=== PATIENT | female | born 1935 | race Caucasian/White ===

== ENCOUNTER → 2016-09-14 | Outpatient (REF) | payer MEDICARE ==
[~2016-09-14] MED LIST: ANEX7.5T PO
[2016-09-14 13:23] LABS: BASO % 0.5 % (0.0-1.0); EOS # 0.2 K/mm3 (0.0-0.50); EOS % 4.7 % (0.0-3.0); LARGE UNSTAINED CELL # 0.1 K/mm3 (0.0-0.4); LARGE UNSTAINED CELL % 2.3 % (0.0-4.0); LYMPH # 1.8 K/mm3 (1.5-4.5); LYMPH % 35.9 % (24.0-44.0); MEAN CORPUSCULAR HEMOGLOBIN 31.2 pg (27.0-33.0); MEAN CORPUSCULAR HGB CONC 32.5 g/dl (32.0-36.5); MEAN CORPUSCULAR VOLUME 96.1 fl (80.0-96.0); MONO # 0.4 K/mm3 (0.0-0.8); MONO % 8.2 % (0.0-5.0); NEUTROPHILS # 2.5 K/mm3 (1.8-7.7); NEUTROPHILS % 48.5 % (36.0-66.0); PLATELET COUNT, AUTOMATED 235 k/mm3 (150-450); WHITE BLOOD COUNT 5.1 K/mm3 (4.0-10.0)
[2016-09-14 13:29] LABS: ALBUMIN 4.2 GM/DL (3.2-5.2); ALBUMIN/GLOBULIN RATIO 1.91 (1.00-1.93); ALKALINE PHOSPHATASE 86 U/L (45-117); ALT/SGPT 26 U/L (12-78); ANION GAP 8 MEQ/L (8-16); AST/SGOT 19 U/L (15-37); BILIRUBIN,TOTAL 0.9 MG/DL (0.2-1.0); BLOOD UREA NITROGEN 20 MG/DL (7-18); CALCIUM LEVEL 9.4 MG/DL (8.8-10.2); CARBON DIOXIDE LEVEL 29 MEQ/L (21-32); CHLORIDE LEVEL 106 MEQ/L (98-107); CHOLESTEROL LEVEL 229 MG/DL (<200); GLOMERULAR FILTRATION RATE > 60.0 (>39); GLUCOSE, FASTING 91 MG/DL (83-110); POTASSIUM SERUM 4.3 MEQ/L (3.5-5.1); SODIUM LEVEL 143 MEQ/L (136-145); TOTAL PROTEIN 6.4 GM/DL (6.4-8.2); TRIGLYCERIDES LEVEL 120 MG/DL (<150)
== END ==
LOC: M LAB REF 09:10
PROVIDERS: ATTEND Family Medicine
DX: E78.5 Hyperlipidemia, unspecified (principal); M81.0 Age-related osteoporosis without current pathological fracture

== ENCOUNTER → 2016-11-22 | Outpatient (REF) | payer MEDICARE | LOC: M LABDRWAD 09:46 | PROVIDERS: ATTEND Orthopaedic Surgery | DX: M51.36 Other intervertebral disc degeneration, lumbar region (principal) ==

== ENCOUNTER → 2017-01-14 | Outpatient (CLI) | payer MEDICARE ==
--- NOTE | 2017-01-14 10:23 | REPMRS ---
Patient History The patient states she has not had a clinical breast exam in over a year. Patient is postmenopausal, has history of other cancer at age 62, and is nulliparous. Family history of prostate cancer in father at age 50 or over, prostate cancer in paternal grandfather at age 50 or over, breast cancer in paternal cousin at age 50 or over, prostate cancer in brother at age 50 or over, and colorectal cancer in brother at age 50 or over. Digital Woman Screen Mammo: January 14, 2017 - Exam #: [id number] Bilateral CC and MLO view(s) were taken. Technologist: April Summers, Technologist Prior study comparison: January 12, 2016, digital woman screen mammo performed at [facility]. January 21, 2015, digital woman screen mammo performed at [facility]. FINDINGS: The breast tissue is heterogeneously dense. This may lower the sensitivity of mammography. There has been no change in the appearance of the mammogram from the prior studies. There is a moderate amount of residual fibroglandular tissue which is fairly symmetric. There is no interval development of dominant mass, areas of architectural distortion, or clustered microcalcification typical of malignancy. ASSESSMENT: BI-RADS/ACR category 1 mammogram. Negative. Recommendation Routine screening mammogram in 1 year (for women over age 40). This mammogram was interpreted with the aid of an FDA-approved computer-aided dectection system. Electronically Signed By: Wojciech Ortega MD 01/14/17 [id number]
== END ==
LOC: M WHC 07:53
PROVIDERS: ATTEND Family Medicine
DX: Z12.31 Encounter for screening mammogram for malignant neoplasm of breast (principal); R92.8 Other abnormal and inconclusive findings on diagnostic imaging of breast; Z78.0 Asymptomatic menopausal state; Z80.0 Family history of malignant neoplasm of digestive organs

== ENCOUNTER → 2017-02-13 | Outpatient (REF) | payer MEDICARE ==
[2017-02-13 12:45] LABS: MEAN CORPUSCULAR HEMOGLOBIN 32.3 pg (27.0-33.0); MEAN CORPUSCULAR HGB CONC 33.6 g/dl (32.0-36.5); MEAN CORPUSCULAR VOLUME 96.1 fl (80.0-96.0); RED CELL DISTRIBUTION WIDTH 12.1 % (11.5-14.5); WHITE BLOOD COUNT 4.7 K/mm3 (4.0-10.0)
[2017-02-13 13:01] LABS: ALBUMIN 4.4 GM/DL (3.2-5.2); ALBUMIN/GLOBULIN RATIO 1.83 (1.00-1.93); ALKALINE PHOSPHATASE 102 U/L (45-117); ALT/SGPT 28 U/L (12-78); ANION GAP 5 MEQ/L (8-16); AST/SGOT 24 U/L (15-37); BILIRUBIN,TOTAL 1.1 MG/DL (0.2-1.0); BLOOD UREA NITROGEN 16 MG/DL (7-18); CARBON DIOXIDE LEVEL 32 MEQ/L (21-32); CHLORIDE LEVEL 107 MEQ/L (98-107); CREATININE FOR GFR 0.79 MG/DL (0.55-1.02); GLOMERULAR FILTRATION RATE > 60.0 (>39); GLUCOSE, FASTING 95 MG/DL (83-110); POTASSIUM SERUM 4.5 MEQ/L (3.5-5.1); SODIUM LEVEL 144 MEQ/L (136-145); TOTAL PROTEIN 6.8 GM/DL (6.4-8.2)
== END ==
LOC: M LABDRWAD 12:06
PROVIDERS: ATTEND Family Medicine
DX: Z01.812 Encounter for preprocedural laboratory examination (principal); Z79.899 Other long term (current) drug therapy

== ENCOUNTER → 2017-02-25 | Outpatient (REF) | payer MEDICARE ==
[2017-02-25 21:08] LABS: MEAN CORPUSCULAR HEMOGLOBIN 31.9 pg (27.0-33.0); MEAN CORPUSCULAR HGB CONC 32.9 g/dl (32.0-36.5); MEAN CORPUSCULAR VOLUME 97.2 fl (80.0-96.0); RED CELL DISTRIBUTION WIDTH 12.8 % (11.5-14.5)
== END ==
LOC: M LABDRWAD 20:30
PROVIDERS: ATTEND Orthopaedic Surgery
DX: Z00.00 Encounter for general adult medical examination without abnormal findings (principal); R63.6 Underweight

== ENCOUNTER → 2017-07-25 | Outpatient (REF) | payer MEDICARE ==
[2017-07-25 12:11] LABS: HEMOGLOBIN 13.8 g/dl (12.0-16.0); MEAN CORPUSCULAR HEMOGLOBIN 31.8 pg (27.0-33.0); MEAN CORPUSCULAR HGB CONC 32.1 g/dl (32.0-36.5); MEAN CORPUSCULAR VOLUME 99.1 fl (80.0-96.0); PLATELET COUNT, AUTOMATED 298 10^3/uL (150-450); RED BLOOD COUNT 4.34 10^6/uL (4.00-5.40); WHITE BLOOD COUNT 5.6 10^3/uL (4.0-10.0)
[2017-07-25 12:24] LABS: CREATININE FOR GFR 0.82 MG/DL (0.55-1.30); GLOMERULAR FILTRATION RATE > 60.0 (>32)
[2017-07-25 12:24] LABS: BLOOD UREA NITROGEN 12 MG/DL (7-18)
[2017-07-25 12:26] LABS: INR 0.98; PROTHROMBIN TIME 13.1 SECONDS (12.4-14.5)
[2017-07-25 12:27] LABS: PARTIAL THROMBOPLASTIN TIME 30.9 SECONDS (26.8-37.9)
== END ==
LOC: M LABDRWAD 12:00
DX: M51.26 Other intervertebral disc displacement, lumbar region (principal); M51.36 Other intervertebral disc degeneration, lumbar region; M43.17 Spondylolisthesis, lumbosacral region; M41.9 Scoliosis, unspecified
CPT/HCPCS: 82565

== ENCOUNTER → 2017-08-09 | Outpatient (CLI) | payer MEDICARE ==
[~2017-08-09] MED LIST changes: -ANEX7.5T PO; +ISOVUE-M 300 61% 15ML VIAL (Q9967) As Ordered; +LIDOCAINE 1% MDV 20ML VIAL As Ordered
== END ==
LOC: M RADPRO 08:15
DX: M54.6 Pain in thoracic spine (principal); M48.061 Spinal stenosis, lumbar region without neurogenic claudication; M51.36 Other intervertebral disc degeneration, lumbar region; M41.86 Other forms of scoliosis, lumbar region; Z98.1 Arthrodesis status; Z88.8 Allergy status to other drugs, medicaments and biological substances; Z88.5 Allergy status to narcotic agent; Z88.1 Allergy status to other antibiotic agents; Z88.0 Allergy status to penicillin; Z79.899 Other long term (current) drug therapy
CPT/HCPCS: 62305

== ENCOUNTER → 2017-09-17 | Outpatient (REF) | payer MEDICARE ==
[2017-09-17 12:35] LABS: BASO % 0.6 % (0.0-1.0); EOS # 0.2 10^3/uL (0.0-0.50); EOS % 3.3 % (0.0-3.0); HEMATOCRIT 42.1 % (36.0-47.0); HEMOGLOBIN 13.3 g/dl (12.0-15.5); IMMATURE GRANULOCYTE % 0.1 % (0-3.0); LYMPH # 1.9 10^3/uL (1.5-4.5); MEAN CORPUSCULAR HEMOGLOBIN 31.6 pg (27.0-33.0); MEAN CORPUSCULAR HGB CONC 31.6 g/dl (32.0-36.5); MONO # 0.6 10^3/uL (0.0-0.8); MONO % 8.7 % (0.0-5.0); NEUTROPHILS % 59.3 % (36.0-66.0); PLATELET COUNT, AUTOMATED 314 10^3/uL (150-450); RED BLOOD COUNT 4.21 10^6/uL (4.00-5.40); RED CELL DISTRIBUTION WIDTH 12.5 % (11.5-14.5); WHITE BLOOD COUNT 6.7 10^3/uL (4.0-10.0)
[2017-09-17 12:49] LABS: TOTAL 25(OH) VITAMIN D 43.3 NG/ML (30.0-100.0)
[2017-09-17 13:19] LABS: ALBUMIN 4.4 GM/DL (3.2-5.2); ALBUMIN/GLOBULIN RATIO 1.52 (1.00-1.93); ALKALINE PHOSPHATASE 140 U/L (45-117); ALT/SGPT 21 U/L (12-78); ANION GAP 9 MEQ/L (8-16); AST/SGOT 23 U/L (7-37); BILIRUBIN,TOTAL 0.8 MG/DL (0.2-1.0); BLOOD UREA NITROGEN 17 MG/DL (7-18); CALCIUM LEVEL 9.3 MG/DL (8.8-10.2); CARBON DIOXIDE LEVEL 28 MEQ/L (21-32); CHLORIDE LEVEL 107 MEQ/L (98-107); CREATININE FOR GFR 0.73 MG/DL (0.55-1.30); GLOMERULAR FILTRATION RATE > 60.0 (>32); GLUCOSE, FASTING 94 MG/DL (70-100); POTASSIUM SERUM 3.9 MEQ/L (3.5-5.1); SODIUM LEVEL 144 MEQ/L (136-145); TOTAL PROTEIN 7.3 GM/DL (6.4-8.2)
== END ==
LOC: M LABDRWAD 12:19
DX: Z01.812 Encounter for preprocedural laboratory examination (principal); M81.0 Age-related osteoporosis without current pathological fracture
CPT/HCPCS: 80053

== ENCOUNTER → 2017-10-08 | Outpatient (REF) | payer MEDICARE ==
[2017-10-08 10:36] LABS: ANION GAP 8 MEQ/L (8-16); BLOOD UREA NITROGEN 11 MG/DL (7-18); CALCIUM LEVEL 8.1 MG/DL (8.8-10.2); CARBON DIOXIDE LEVEL 29 MEQ/L (21-32); CHLORIDE LEVEL 107 MEQ/L (98-107); CREATININE FOR GFR 0.46 MG/DL (0.55-1.30); GLOMERULAR FILTRATION RATE > 60.0 (>32); GLUCOSE, FASTING 99 MG/DL (70-100); MAGNESIUM LEVEL 2.2 MG/DL (1.8-2.4); POTASSIUM SERUM 3.5 MEQ/L (3.5-5.1); SODIUM LEVEL 144 MEQ/L (136-145)
== END ==
LOC: M LABDRWAD 09:58
DX: Z00.00 Encounter for general adult medical examination without abnormal findings (principal)
CPT/HCPCS: 83735

== ENCOUNTER → 2018-01-15 | Outpatient (CLI) | payer MEDICARE | LOC: M WHC 13:58 | DX: Z12.31 Encounter for screening mammogram for malignant neoplasm of breast (principal); N60.31 Fibrosclerosis of right breast; N60.32 Fibrosclerosis of left breast | CPT/HCPCS: 77067 ==

== ENCOUNTER → 2018-02-14 | Outpatient (CLI) | payer MEDICARE | LOC: M ADAMS 11:16 | DX: M25.562 Pain in left knee (principal) | CPT/HCPCS: 73564 ==

== ENCOUNTER → 2018-04-02 | Outpatient (CLI) | payer MEDICARE ==
[2018-04-02 12:46] LABS: BASO % 0.5 % (0.0-1.0); EOS # 0.2 10^3/uL (0.0-0.50); EOS % 3.1 % (0.0-3.0); HEMATOCRIT 38.9 % (36.0-47.0); HEMOGLOBIN 12.5 g/dl (12.0-15.5); IMMATURE GRANULOCYTE % 0.3 % (0-3.0); LYMPH # 1.8 10^3/uL (1.5-4.5); LYMPH % 23.3 % (24.0-44.0); MEAN CORPUSCULAR HEMOGLOBIN 30.3 pg (27.0-33.0); MEAN CORPUSCULAR HGB CONC 32.1 g/dl (32.0-36.5); MEAN CORPUSCULAR VOLUME 94.2 fl (80.0-96.0); MONO # 0.6 10^3/uL (0.0-0.8); MONO % 8.3 % (0.0-5.0); NEUTROPHILS # 4.9 10^3/uL (1.8-7.7); NEUTROPHILS % 64.5 % (36.0-66.0); PLATELET COUNT, AUTOMATED 341 10^3/uL (150-450); RED BLOOD COUNT 4.13 10^6/uL (4.00-5.40); RED CELL DISTRIBUTION WIDTH 14.4 % (11.5-14.5); WHITE BLOOD COUNT 7.6 10^3/uL (4.0-10.0)
[2018-04-02 13:24] LABS: ALBUMIN 4.2 GM/DL (3.2-5.2); ALBUMIN/GLOBULIN RATIO 1.56 (1.00-1.93); ALKALINE PHOSPHATASE 173 U/L (45-117); ALT/SGPT 28 U/L (12-78); ANION GAP 9 MEQ/L (8-16); AST/SGOT 25 U/L (7-37); BILIRUBIN,TOTAL 0.6 MG/DL (0.2-1.0); BLOOD UREA NITROGEN 16 MG/DL (7-18); CARBON DIOXIDE LEVEL 28 MEQ/L (21-32); CHLORIDE LEVEL 104 MEQ/L (98-107); CREATININE FOR GFR 0.76 MG/DL (0.55-1.30); GLOMERULAR FILTRATION RATE > 60.0 (>32); GLUCOSE, FASTING 112 MG/DL (70-100); SODIUM LEVEL 141 MEQ/L (136-145); TOTAL PROTEIN 6.9 GM/DL (6.4-8.2)
== END ==
LOC: M ADAMS 11:11
DX: Z01.812 Encounter for preprocedural laboratory examination (principal)
CPT/HCPCS: 80053

== ENCOUNTER 2018-05-06 07:18 | Outpatient (CLI) | payer MEDICARE ==
[2018-05-06] MEDS: ZOLEDRONIC ACID 5 MG in APPROPRIATE DILUENT 1 EA IV (07:34)
== END 2018-05-06 08:35 | disposition home or self-care (01) ==
LOC: M INFU 07:18
DX: M81.0 Age-related osteoporosis without current pathological fracture (principal); Z88.0 Allergy status to penicillin; Z88.5 Allergy status to narcotic agent
CPT/HCPCS: J3489

== ENCOUNTER → 2018-09-15 | Outpatient (REF) | payer MEDICARE ==
[~2018-09-15] MED LIST changes: +ANEX7.5T PO; -ISOVUE-M 300 61% 15ML VIAL (Q9967) As Ordered; -LIDOCAINE 1% MDV 20ML VIAL As Ordered
[2018-09-15 13:41] LABS: BASO % 0.8 % (0.0-1.0); EOS # 0.4 10^3/uL (0.0-0.50); EOS % 7.8 % (0.0-3.0); HEMATOCRIT 42.9 % (36.0-47.0); HEMOGLOBIN 13.5 g/dl (12.0-15.5); LYMPH # 1.4 10^3/uL (1.5-4.5); LYMPH % 26.3 % (24.0-44.0); MEAN CORPUSCULAR HEMOGLOBIN 30.3 pg (27.0-33.0); MEAN CORPUSCULAR HGB CONC 31.5 g/dl (32.0-36.5); MEAN CORPUSCULAR VOLUME 96.2 fl (80.0-96.0); MONO # 0.5 10^3/uL (0.0-0.8); MONO % 9.5 % (0.0-5.0); NEUTROPHILS # 2.9 10^3/uL (1.8-7.7); NEUTROPHILS % 55.4 % (36.0-66.0); PLATELET COUNT, AUTOMATED 313 10^3/uL (150-450); RED BLOOD COUNT 4.46 10^6/uL (4.00-5.40); WHITE BLOOD COUNT 5.2 10^3/uL (4.0-10.0)
[2018-09-15 13:48] LABS: ALBUMIN 4.3 GM/DL (3.2-5.2); ALT/SGPT 24 U/L (12-78); BILIRUBIN,TOTAL 0.9 MG/DL (0.2-1.0); BLOOD UREA NITROGEN 14 MG/DL (7-18); CALCIUM LEVEL 9.7 MG/DL (8.8-10.2); CARBON DIOXIDE LEVEL 32 MEQ/L (21-32); CHLORIDE LEVEL 104 MEQ/L (98-107); CHOLESTEROL LEVEL 262 MG/DL (<200); CHOLESTEROL RISK RATIO 3.447 (<5); GLOMERULAR FILTRATION RATE > 60.0 (>32); GLUCOSE, FASTING 84 MG/DL (70-100); HDL CHOLESTEROL 76 MG/DL (>40); LDL CHOLESTEROL 153 MG/DL (<100); NON-HDL-C 186 MG/DL; POTASSIUM SERUM 4.3 MEQ/L (3.5-5.1); SODIUM LEVEL 140 MEQ/L (136-145); TOTAL PROTEIN 6.7 GM/DL (6.4-8.2); TRIGLYCERIDES LEVEL 165 MG/DL (<150)
[2018-09-15 13:52] LABS: TOTAL 25(OH) VITAMIN D 43.5 NG/ML (30.0-100.0)
== END ==
LOC: M LABDRWAD 12:32
PROVIDERS: ATTEND Family Medicine
DX: M81.0 Age-related osteoporosis without current pathological fracture (principal); E78.5 Hyperlipidemia, unspecified

== ENCOUNTER → 2018-11-18 | Outpatient (REF) | payer MEDICARE ==
[2018-11-18 13:17] LABS: ALBUMIN 4.3 GM/DL (3.2-5.2); ALT/SGPT 25 U/L (12-78); BILIRUBIN,DIRECT 0.2 MG/DL (0.0-0.2); BILIRUBIN,TOTAL 0.9 MG/DL (0.2-1.0); BLOOD UREA NITROGEN 19 MG/DL (7-18); CARBON DIOXIDE LEVEL 28 MEQ/L (21-32); CHLORIDE LEVEL 106 MEQ/L (98-107); CREATININE FOR GFR 0.73 MG/DL (0.55-1.30); GLOMERULAR FILTRATION RATE > 60.0 (>32); GLUCOSE, FASTING 93 MG/DL (70-100); PHOSPHORUS LEVEL 3.9 MG/DL (2.5-4.9); POTASSIUM SERUM 5.1 MEQ/L (3.5-5.1); SODIUM LEVEL 141 MEQ/L (136-145); TOTAL PROTEIN 7.3 GM/DL (6.4-8.2)
== END ==
LOC: M LABDRWAD 12:17
DX: M54.16 Radiculopathy, lumbar region (principal)

== ENCOUNTER → 2018-12-17 | Outpatient (REF) | payer MEDICARE ==
[2018-12-17 14:52] LABS: ALBUMIN 4.5 GM/DL (3.2-5.2); ALT/SGPT 30 U/L (12-78); BILIRUBIN,DIRECT 0.2 MG/DL (0.0-0.2); BLOOD UREA NITROGEN 13 MG/DL (7-18); CALCIUM LEVEL 9.4 MG/DL (8.8-10.2); CARBON DIOXIDE LEVEL 30 MEQ/L (21-32); CHLORIDE LEVEL 104 MEQ/L (98-107); CREATININE FOR GFR 0.76 MG/DL (0.55-1.30); GLOMERULAR FILTRATION RATE > 60.0 (>32); GLUCOSE, FASTING 106 MG/DL (70-100); PHOSPHORUS LEVEL 3.7 MG/DL (2.5-4.9); POTASSIUM SERUM 4.6 MEQ/L (3.5-5.1); SODIUM LEVEL 140 MEQ/L (136-145); TOTAL PROTEIN 7.5 GM/DL (6.4-8.2)
== END ==
LOC: M LABDRWAD 13:24
PROVIDERS: ATTEND Nurse Practitioner Family
DX: M54.5 Low back pain (principal); M54.16 Radiculopathy, lumbar region

== ENCOUNTER → 2019-01-26 | Outpatient (CLI) | payer MEDICARE ==
--- NOTE | 2019-01-26 09:21 | REPMRS ---
Patient History The patient states she has not had a clinical breast exam in over a year. Patient is postmenopausal, has history of other cancer at age 62, and is nulliparous. Family history of breast cancer at age 50 or over in paternal cousin, prostate cancer at age 50 or over in paternal grandfather, prostate cancer at age 50 or over in father, colorectal cancer at age 50 or over in brother, prostate cancer at age 50 or over in brother. 3D TOMOSYNTHESIS WAS PERFORMED. The [facility] lifetime risk for breast cancer is 2.1%. Digital Woman Screen Mammo: January 26, 2019 - Exam #: [id number] Bilateral CC and MLO view(s) were taken. Technologist: Eunice Tyler Technologist Prior study comparison: January 15, 2018, bilateral digital woman screen mammo performed at [facility]. January 14, 2017, digital woman screen mammo performed at [facility]. FINDINGS: The breast tissue is heterogeneously dense. This may lower the sensitivity of mammography. There has been no change in the appearance of the mammogram from the prior studies. There is a moderate amount of residual fibroglandular tissue which is fairly symmetric. There is no interval development of dominant mass, areas of architectural distortion, or clustered microcalcification typical of malignancy. Assessment: BI-RADS/ACR category 1 mammogram. Negative Mammogram. Recommendation Routine screening mammogram in 1 year (for women over age 40). This mammogram was interpreted with the aid of an FDA-approved computer-aided dectection system. Electronically Signed By: Wojciech Ortega MD 01/26/19 [id number]
== END ==
LOC: M WHC 07:51
PROVIDERS: ATTEND Family Medicine
DX: Z12.31 Encounter for screening mammogram for malignant neoplasm of breast (principal); Z78.0 Asymptomatic menopausal state; Z85.9 Personal history of malignant neoplasm, unspecified; Z80.3 Family history of malignant neoplasm of breast; Z80.0 Family history of malignant neoplasm of digestive organs

== ENCOUNTER → 2019-02-06 | Outpatient (REF) | payer MEDICARE | LOC: M LABDRWAD 12:09 | PROVIDERS: ATTEND Ophthalmology | DX: H34.8310 Tributary (branch) retinal vein occlusion, right eye, with macular edema (principal) ==

== ENCOUNTER → 2019-02-07 | Outpatient (CLI) | payer MEDICARE ==
[2019-02-07 10:27] LABS: CHOLESTEROL LEVEL 256 MG/DL (<200); CHOLESTEROL RISK RATIO 3.413 (<5); GLUCOSE, FASTING 95 MG/DL (70-100); HDL CHOLESTEROL 75 MG/DL (>40); HEMOGLOBIN A1c 5.5 %; LDL CHOLESTEROL 151 MG/DL (<100); NON-HDL-C 181 MG/DL; TRIGLYCERIDES LEVEL 151 MG/DL (<150)
[2019-02-07 10:42] LABS: INR 0.95; PARTIAL THROMBOPLASTIN TIME 31.7 SECONDS (25.0-38.4); PROTHROMBIN TIME 12.4 SECONDS (11.8-14.0)
[2019-02-10 00:06] LABS: ANTINUCLEAR ANTIBODIES DIRECT Negative (Negative)
[2019-02-12 09:56] LABS: ALBUMIN % 64.5 % (55.8-66.1); ALPHA-1-GLOBULINS 0.28 GM/DL (0.17-0.41); ALPHA-2-GLOBULINS 0.74 GM/DL (0.42-0.99); ALPHA-2-GLOBULINS % 10.6 % (7.1-11.8); BETA-1-GLOBULINS 0.46 GM/DL (0.28-0.60); BETA-1-GLOBULINS % 6.5 % (4.7-7.2); BETA-2-GLOBULINS 0.35 GM/DL (0.19-0.55); GAMMA GLOBULIN % 9.4 % (11.1-18.8); GAMMA GLOBULINS 0.66 GM/DL (0.65-1.58)
[2019-02-12 09:57] LABS: ALBUMIN 4.52 GM/DL (3.29-5.55)
== END ==
LOC: M ADAMS 08:40
PROVIDERS: ATTEND Ophthalmology
DX: H34.8310 Tributary (branch) retinal vein occlusion, right eye, with macular edema (principal)

== ENCOUNTER → 2019-02-11 | Outpatient (REF) | payer MEDICARE ==
[2019-02-11 12:44] LABS: ALBUMIN 3.9 GM/DL (3.2-5.2); ALT/SGPT 25 U/L (12-78); BILIRUBIN,TOTAL 0.7 MG/DL (0.2-1.0); BLOOD UREA NITROGEN 23 MG/DL (7-18); CALCIUM LEVEL 9.6 MG/DL (8.8-10.2); CARBON DIOXIDE LEVEL 27 MEQ/L (21-32); CHLORIDE LEVEL 105 MEQ/L (98-107); CREATININE FOR GFR 0.83 MG/DL (0.55-1.30); GLOMERULAR FILTRATION RATE > 60.0 (>32); GLUCOSE, FASTING 101 MG/DL (70-100); POTASSIUM SERUM 4.3 MEQ/L (3.5-5.1); SODIUM LEVEL 140 MEQ/L (136-145); TOTAL PROTEIN 6.4 GM/DL (6.4-8.2)
== END ==
LOC: M LABDRWAD 12:22
PROVIDERS: ATTEND Family Medicine
DX: H34.231 Retinal artery branch occlusion, right eye (principal)

== ENCOUNTER → 2019-02-19 | Outpatient (CLI) | payer MEDICARE ==
[~2019-02-19] MED LIST changes: +PROHANCE 279.3MG/ML 15ML VIAL (A9576) As Ordered ONE; +PROHANCE 279.3MG/ML 5ML VIAL (A9576) As Ordered ONE
--- NOTE | 2019-02-19 14:03 | REPVR ---
PROCEDURE INFORMATION: Exam: MR Head Without Contrast Exam date and time: 02/19/2019 11:55 AM Clinical history: 83 years old, female; Other: Retinal artery branch occlusion, right eye TECHNIQUE: Imaging protocol: MR of the head without contrast. COMPARISON: No relevant prior studies available. FINDINGS: Brain: The diffusion weighted images demonstrate no evidence for acute infarct. The cerebellar tonsils are normal in position. There are moderate areas of increased signal in the periventricular white matter bilaterally. Several small foci of increased signal are also present in the deep subcortical white matter. Findings likely reflect chronic microvascular ischemic disease in a patient of this age. No intracranial hemorrhage or extraaxial collection is identified. There is no significant intracranial mass effect, and no mass is identified. Ventricles: The ventricles and sulci are mildly prominent, in concordance with mild global atrophy. Bones/joints: Unremarkable. Soft tissues: Unremarkable. Sinuses: Normal as visualized. No acute sinusitis. Mastoid air cells: Normal as visualized. No mastoid effusion. Orbits: Unremarkable. IMPRESSION: 1. No evidence for acute infarct, hemorrhage or mass. 2. Mild atrophy with chronic white matter disease. Electronically signed by: Steve Kathleen On 02/19/2019 14:03:18 PM
--- NOTE | 2019-02-19 14:05 | REPVR ---
PROCEDURE INFORMATION: Exam: MR Angiogram Head Without Contrast, Arteries Exam date and time: 02/19/2019 11:58 AM Clinical history: 83 years old, female; Other: Retinal artery branch occlusion, right eye TECHNIQUE: Imaging protocol: MR angiogram head without contrast. Exam focused on the arteries. COMPARISON: No relevant prior studies available. FINDINGS: Right internal carotid artery: Unremarkable. Intracranial segment is patent with no significant stenosis. No aneurysm. Right anterior cerebral artery: Unremarkable. No occlusion or significant stenosis. No aneurysm. Right middle cerebral artery: Unremarkable. No occlusion or significant stenosis. No aneurysm. Right posterior cerebral artery: Unremarkable. No occlusion or significant stenosis. No aneurysm. Right vertebral artery: Unremarkable. No occlusion or significant stenosis. No aneurysm. Left internal carotid artery: There is mild short segmental narrowing at the junction of the upper cervical and petrous portions of the internal carotid artery. The artery is otherwise patent. Left anterior cerebral artery: Unremarkable. No occlusion or significant stenosis. No aneurysm. Left middle cerebral artery: Unremarkable. No occlusion or significant stenosis. No aneurysm. Left posterior cerebral artery: Unremarkable. No occlusion or significant stenosis. No aneurysm. Left vertebral artery: Unremarkable. No occlusion or significant stenosis. No aneurysm. Basilar artery: Unremarkable. No occlusion or significant stenosis. No aneurysm. IMPRESSION: Mild short segmental narrowing of the left internal carotid artery as above. Otherwise, no significant stenosis, occlusion or aneurysm. Electronically signed by: Steve Kathleen On 02/19/2019 14:05:48 PM
--- NOTE | 2019-02-19 14:08 | REPVR ---
PROCEDURE INFORMATION: Exam: MR Angiography Neck Without and With Contrast Exam date and time: 02/19/2019 11:58 AM Clinical history: 83 years old, female; Other: Retinal artery branch occlusion, right eye TECHNIQUE: Imaging protocol: Magnetic resonance angiography of the neck without and with intravenous contrast. Contrast material: PROHANCE; Contrast volume: 25 ml; Contrast route: IV; COMPARISON: No relevant prior studies available. FINDINGS: Right common carotid artery: Unremarkable. No stenosis. No dissection or occlusion. Right internal carotid artery: Unremarkable extracranial segment. No stenosis. No dissection or occlusion. Right external carotid artery: Unremarkable. No stenosis. No dissection or occlusion of the origin. Right vertebral artery: Torturous. No stenosis. No dissection or occlusion. Left common carotid artery: Unremarkable. No stenosis. No dissection or occlusion. Left internal carotid artery: There is mild short segmental narrowing of the left internal carotid artery at the junction of the upper cervical and petrous portions. The artery is otherwise patent. Left external carotid artery: Unremarkable. No stenosis. No dissection or occlusion of the origin. Left vertebral artery: Tortuous. No stenosis. No dissection or occlusion. IMPRESSION: 1. No hemodynamically significant stenosis at the carotid bifurcations. 2. Mild short segmental narrowing of the left internal carotid artery at the junction of the upper cervical and petrous portions. 3. Vertebral arteries tortuous but patent. COMMENT: Reference per NASCET criteria for degree of stenosis: Mild: less than 50% stenosis. Moderate: 50-69% stenosis. Severe: 70-94% stenosis. Near occlusion: 95-99% stenosis. Electronically signed by: Steve Kathleen On 02/19/2019 14:08:02 PM
== END ==
LOC: M RAD 09:58
PROVIDERS: ATTEND Family Medicine
DX: H34.231 Retinal artery branch occlusion, right eye (principal); I65.21 Occlusion and stenosis of right carotid artery; G31.1 Senile degeneration of brain, not elsewhere classified
CPT/HCPCS: 70544; 70549; 70551; A9576

== ENCOUNTER → 2019-08-18 | Outpatient (REF) | payer MEDICARE ==
[~2019-08-18] MED LIST changes: -PROHANCE 279.3MG/ML 15ML VIAL (A9576) As Ordered ONE; -PROHANCE 279.3MG/ML 5ML VIAL (A9576) As Ordered ONE
[2019-08-18 12:47] LABS: HEMATOCRIT 41.7 % (36.0-47.0); HEMOGLOBIN 13.1 g/dl (12.0-15.5); MEAN CORPUSCULAR HGB CONC 31.4 g/dl (32.0-36.5); MEAN CORPUSCULAR VOLUME 95.6 fl (80.0-96.0); PLATELET COUNT, AUTOMATED 328 10^3/uL (150-450); RED BLOOD COUNT 4.36 10^6/uL (4.00-5.40); WHITE BLOOD COUNT 16.3 10^3/uL (4.0-10.0)
[2019-08-18 12:51] LABS: ALBUMIN 4.7 GM/DL (3.2-5.2); ALT/SGPT 28 U/L (12-78); BILIRUBIN,TOTAL 1.1 MG/DL (0.2-1.0); BLOOD UREA NITROGEN 22 MG/DL (7-18); CALCIUM LEVEL 9.8 MG/DL (8.8-10.2); CARBON DIOXIDE LEVEL 27 MEQ/L (21-32); CHLORIDE LEVEL 102 MEQ/L (98-107); CHOLESTEROL LEVEL 166 MG/DL (<200); CHOLESTEROL RISK RATIO 1.952 (<5); CREATININE FOR GFR 0.92 MG/DL (0.55-1.30); GLOMERULAR FILTRATION RATE > 60.0 (>32); GLUCOSE, FASTING 114 MG/DL (70-100); HDL CHOLESTEROL 85 MG/DL (>40); LDL CHOLESTEROL 65 MG/DL (<100); NON-HDL-C 81 MG/DL; POTASSIUM SERUM 4.4 MEQ/L (3.5-5.1); SODIUM LEVEL 135 MEQ/L (136-145); TOTAL PROTEIN 7.9 GM/DL (6.4-8.2); TRIGLYCERIDES LEVEL 81 MG/DL (<150)
[2019-08-18 12:58] LABS: TOTAL 25(OH) VITAMIN D 43.8 NG/ML (30.0-100.0)
== END ==
LOC: M LABDRWAD 12:21
PROVIDERS: ATTEND Family Medicine
DX: M81.0 Age-related osteoporosis without current pathological fracture (principal); E78.5 Hyperlipidemia, unspecified

== ENCOUNTER → 2019-08-28 | Outpatient (REF) | payer MEDICARE ==
[2019-08-28 13:19] LABS: HEMATOCRIT 37.5 % (36.0-47.0); HEMOGLOBIN 11.7 g/dl (12.0-15.5); MEAN CORPUSCULAR HEMOGLOBIN 30.5 pg (27.0-33.0); MEAN CORPUSCULAR HGB CONC 31.2 g/dl (32.0-36.5); MEAN CORPUSCULAR VOLUME 97.7 fl (80.0-96.0); PLATELET COUNT, AUTOMATED 295 10^3/uL (150-450); RED BLOOD COUNT 3.84 10^6/uL (4.00-5.40); WHITE BLOOD COUNT 6.9 10^3/uL (4.0-10.0)
[2019-08-28 14:03] LABS: ATYPICAL LYMPH 12 % (0-5); BASOPHILS 1 % (0-1); EOSINOPHILS 4 % (0-3); LYMPHOCYTES 13 % (16-44); MONOCYTES 5 % (0-5); NEUTROPHILS 64 % (28-66)
[2019-08-28 14:04] LABS: OVALOCYTES 2+; PLATELET ESTIMATE NORMAL (NORMAL)
== END ==
LOC: M LABDRWAD 12:32
PROVIDERS: ATTEND Family Medicine
DX: D72.829 Elevated white blood cell count, unspecified (principal)

== ENCOUNTER → 2019-10-09 | Outpatient (CLI) | payer MEDICARE ==
--- NOTE | 2019-10-15 09:17 | DEXA ---
AP SPINE L1 - L4 LT FEMUR TOTAL 0.746 -2.1 0.0 LT NECK 0.737 -2.2 0.1 RT FEMUR TOTAL 0.765 -1.9 0.2 RT NECK 0.762 -2.0 0.3 TOTAL BODY TOTAL OTHER COMMENTS: There is low bone density of the hips. The decreased density of the left hip does not represent a significant change. The decreased density of the right hip does not represent significant change. The density of the left hip has increased 1.4% since initial exam on 11/08/1998. The density of the left hip has decreased 0.3% since the most recent exam on 01/12/2016. The density of the right hip has increased 1.6% since initial exam on 11/08/1998. The density of the right hip has decreased 0.5% since the most recent exam on 01/12/2016. FOLLOW-UP: Recommendation for the next bone density exam: 2 years. REYNALDO
== END ==
LOC: M WHC 08:45
PROVIDERS: ATTEND Family Medicine
DX: M81.0 Age-related osteoporosis without current pathological fracture (principal)

== ENCOUNTER 2019-11-23 13:44 | Outpatient (CLI) | payer MEDICARE ==
[~2019-11-23] VITALS: Ht 162.6 cm; Wt 60.0 kg
[2019-11-23] MEDS ORDERED: ZOLEDRONIC ACID 5 MG in IV 1 EA IV ONE (14:00)
[2019-11-23 14:01] VITALS: BP 155/67
[2019-11-23 14:50] VITALS: BP 145/65
== END 2019-11-23 14:55 | disposition home or self-care (01) ==
LOC: M INFU 13:44
PROVIDERS: ATTEND Family Medicine
DX: M81.0 Age-related osteoporosis without current pathological fracture (principal); Z88.0 Allergy status to penicillin; Z88.5 Allergy status to narcotic agent
CPT/HCPCS: 96365; J3489

== ENCOUNTER → 2020-02-25 | Outpatient (CLI) | payer MEDICARE ==
--- NOTE | 2020-02-25 12:03 | REPMRS ---
Patient History The patient states she has not had a clinical breast exam in over a year. Family history of breast cancer at age 50 or over in paternal cousin, prostate cancer at age 50 or over in paternal grandfather, prostate cancer at age 50 or over in father, colorectal cancer at age 50 or over in brother, prostate cancer at age 50 or over in brother. 3D TOMOSYNTHESIS WAS PERFORMED. The [facility] lifetime risk for breast cancer is 1.6%. [facility] Digital Woman Screen Mammo: February 25, 2020 - Exam #: [id number] Bilateral CC and MLO view(s) were taken. Technologist: Genesis Kraft, Technologist Prior study comparison: January 26, 2019, bilateral digital woman screen mammo performed at [facility]. January 15, 2018, bilateral digital woman screen mammo performed at [facility]. January 14, 2017, digital woman screen mammo performed at [facility]. FINDINGS: The breast tissue is heterogeneously dense. This may lower the sensitivity of mammography. There has been no change in the appearance of the mammogram from the prior studies. There is a moderate amount of residual fibroglandular tissue which is fairly symmetric. There is no interval development of dominant mass, areas of architectural distortion, or clustered microcalcification typical of malignancy. Assessment: BI-RADS/ACR category 1 mammogram. Negative Mammogram. Recommendation Routine screening mammogram of both breasts in 1 year (for women over age 40). This patient's Lifetime Breast Cancer RIsk is estimated at 1.6 %. This mammogram was interpreted with the aid of an FDA-approved computer-aided dectection system. Electronically Signed By: Mike Bernal MD 02/25/20 [id number]
== END ==
LOC: M WHC 07:40
PROVIDERS: ATTEND Family Medicine
DX: Z12.31 Encounter for screening mammogram for malignant neoplasm of breast (principal); Z80.3 Family history of malignant neoplasm of breast; Z80.42 Family history of malignant neoplasm of prostate; Z80.0 Family history of malignant neoplasm of digestive organs

== ENCOUNTER → 2020-07-04 | Outpatient (CLI) | payer MEDICARE ==
--- NOTE | 2020-07-04 14:23 | REP ---
INDICATION: LOW BACK PAIN. COMPARISON: None. TECHNIQUE: Three AP and lateral views of thoracic spine performed. FINDINGS: There are 2 Bertrand rods extending from the lower cervical spine to the T9 vertebral body level. Two other Bertrand rods extend from T8 to L1. There are Bertrand rods in the lumbar spine as well. Multiple screws fix these rods posteriorly. Moderate compression deformities noted of T10 as well as T6. There is mild accentuation of thoracic kyphosis. There is mild diffuse spurring. There is mild curvature convex to the right. IMPRESSION: Bertrand rods throughout the thoracic region as discussed above. Moderate compression deformity of T6 and T10 of indeterminate age. <Electronically signed by Wojciech Ortega > 07/04/20 [id number]
--- NOTE | 2020-07-04 14:30 | REP ---
INDICATION: LOW BACK PAIN. COMPARISON: CT 08/09/2017.. TECHNIQUE: Six views lumbosacral spine performed. FINDINGS: Two Bertrand rods are seen along the entire lumbar spine on each side. Twelve there are Bertrand rods bridge the lumbosacral junction. Multiple posterior screws are seen. No compression fracture is seen. There is slight retrolisthesis of L2 on L3. There is slight anterolisthesis of L4 on L5 and L5 on S1. There is mild diffuse spurring. There is moderate disc space narrowing and subchondral sclerosis at L1-2 with mild narrowing at L2-3. There is mild narrowing at L4-5. There is moderate narrowing at L5-S1. There is bony fusion along both sides of the lower lumbar spine. Metallic clips are seen in the right upper quadrant. There is a coiled wire in the left pelvis. IMPRESSION: No acute compression fracture. Arthritic and postsurgical changes as above. <Electronically signed by Wojciech Ortega > 07/04/20 0012
== END ==
LOC: M ADAMS 13:02
PROVIDERS: ATTEND Nurse Practitioner Family
DX: M54.5 Low back pain (principal); Z96.89 Presence of other specified functional implants; M47.816 Spondylosis without myelopathy or radiculopathy, lumbar region

== ENCOUNTER → 2020-09-13 | Outpatient (REF) | payer MEDICARE ==
[2020-09-13 12:35] LABS: HEMATOCRIT 41.1 % (36.0-47.0); HEMOGLOBIN 12.5 g/dl (12.0-15.5); MEAN CORPUSCULAR HEMOGLOBIN 27.7 pg (27.0-33.0); MEAN CORPUSCULAR HGB CONC 30.4 g/dl (32.0-36.5); MEAN CORPUSCULAR VOLUME 90.9 fl (80.0-96.0); PLATELET COUNT, AUTOMATED 289 10^3/uL (150-450); RED BLOOD COUNT 4.52 10^6/uL (4.00-5.40); WHITE BLOOD COUNT 6.6 10^3/uL (4.0-10.0)
[2020-09-13 13:56] LABS: ALBUMIN 4.7 GM/DL (3.2-5.2); ALT/SGPT 26 U/L (12-78); BILIRUBIN,TOTAL 1.2 MG/DL (0.2-1.0); BLOOD UREA NITROGEN 17 MG/DL (7-18); CALCIUM LEVEL 10.1 MG/DL (8.8-10.2); CARBON DIOXIDE LEVEL 27 MEQ/L (21-32); CHLORIDE LEVEL 106 MEQ/L (98-107); CHOLESTEROL LEVEL 152 MG/DL (<200); CHOLESTEROL RISK RATIO 1.747 (<5); CREATININE FOR GFR 0.77 MG/DL (0.55-1.30); GLOMERULAR FILTRATION RATE > 60.0 (>32); GLUCOSE, FASTING 92 MG/DL (70-100); HDL CHOLESTEROL 87 MG/DL (>40); LDL CHOLESTEROL 53 MG/DL (<100); NON-HDL-C 65 MG/DL; POTASSIUM SERUM 4.5 MEQ/L (3.5-5.1); SODIUM LEVEL 141 MEQ/L (136-145); TOTAL 25(OH) VITAMIN D 46.4 NG/ML (30.0-100.0); TOTAL PROTEIN 7.1 GM/DL (6.4-8.2); TRIGLYCERIDES LEVEL 59 MG/DL (<150)
== END ==
LOC: M LABDRWAD 12:19
PROVIDERS: ATTEND Family Medicine
DX: M81.0 Age-related osteoporosis without current pathological fracture (principal); E78.5 Hyperlipidemia, unspecified

== ENCOUNTER → 2020-10-27 | Outpatient (CLI) | payer MEDICARE ==
[2020-10-27 11:28] LABS: BASO % 0.5 % (0.0-1.0); EOS # 0.6 10^3/uL (0.0-0.5); EOS % 10.2 % (0.0-3.0); HEMATOCRIT 41.5 % (36.0-47.0); HEMOGLOBIN 12.5 g/dl (12.0-15.5); LYMPH # 0.9 10^3/uL (1.5-5.0); LYMPH % 16.7 % (24.0-44.0); MEAN CORPUSCULAR HEMOGLOBIN 27.9 pg (27.0-33.0); MEAN CORPUSCULAR HGB CONC 30.1 g/dl (32.0-36.5); MEAN CORPUSCULAR VOLUME 92.6 fl (80.0-96.0); MONO # 0.7 10^3/uL (0.0-0.8); MONO % 12.2 % (2.0-8.0); NEUTROPHILS # 3.3 10^3/uL (1.5-8.5); PLATELET COUNT, AUTOMATED 250 10^3/uL (150-450); RED BLOOD COUNT 4.48 10^6/uL (4.00-5.40); WHITE BLOOD COUNT 5.6 10^3/uL (4.0-10.0)
[2020-10-27 11:40] LABS: INR 0.93; PROTHROMBIN TIME 12.7 SECONDS (12.5-14.3)
[2020-10-27 11:41] LABS: PARTIAL THROMBOPLASTIN TIME 29.7 SECONDS (24.2-38.5)
[2020-10-27 11:53] LABS: ERYTHROCYTE SEDIMENTATION RATE 10 mm/hr (0-30)
[2020-10-27 12:13] LABS: ALBUMIN 4.5 GM/DL (3.2-5.2); ALT/SGPT 30 U/L (12-78); BILIRUBIN,TOTAL 0.7 MG/DL (0.2-1.0); BLOOD UREA NITROGEN 14 MG/DL (7-18); C REACTIVE PROTEIN QUANTITATIV 0.83 MG/DL (0.00-0.30); CALCIUM LEVEL 9.7 MG/DL (8.8-10.2); CARBON DIOXIDE LEVEL 28 MEQ/L (21-32); CHLORIDE LEVEL 108 MEQ/L (98-107); CREATININE FOR GFR 0.69 MG/DL (0.55-1.30); GLOMERULAR FILTRATION RATE > 60.0 (>32); GLUCOSE, FASTING 95 MG/DL (70-100); POTASSIUM SERUM 4.2 MEQ/L (3.5-5.1); SODIUM LEVEL 142 MEQ/L (136-145)
== END ==
LOC: M WUC 09:59
PROVIDERS: ATTEND Physician Assistant
DX: R21 Rash and other nonspecific skin eruption (principal)

== ENCOUNTER → 2020-11-11 | Outpatient (REF) | payer MEDICARE | LOC: M LAB REF 16:19 | PROVIDERS: ATTEND Ophthalmology | DX: D23.111 Other benign neoplasm of skin of right upper eyelid, including canthus (principal) ==

== ENCOUNTER 2020-11-30 14:53 | Outpatient (CLI) | payer MEDICARE ==
[~2020-11-30] VITALS: Ht 162.6 cm; Wt 56.8 kg
[2020-11-30 15:00] VITALS: BP 164/78
[2020-11-30] MEDS ORDERED: ZOLEDRONIC ACID 5 MG in IV 1 EA IV ONE (15:00)
[2020-11-30 15:30] VITALS: BP 139/79
== END 2020-11-30 15:45 | disposition home or self-care (01) ==
LOC: M INFU 14:53
PROVIDERS: ATTEND Family Medicine
DX: M81.0 Age-related osteoporosis without current pathological fracture (principal)
CPT/HCPCS: 96365; J3489

== ENCOUNTER → 2021-03-03 | Outpatient (CLI) | payer MEDICARE ==
--- NOTE | 2021-03-03 09:26 | REPMRS ---
Patient History The patient states she has not had a clinical breast exam in over a year. Patient is postmenopausal, has history of other cancer at age 62, and is nulliparous. Family history of breast cancer at age 50 or over in paternal cousin, prostate cancer at age 50 or over in paternal grandfather, prostate cancer at age 50 or over in father, colorectal cancer at age 50 or over in brother, prostate cancer at age 50 or over in brother, colorectal cancer at age 50 or over in brother. Patient states no breast complaints today. Patient has signed MRS History Sheet. Digital Woman Screen Mammo: March 03, 2021 - Exam #: [id number] Bilateral CC and MLO view(s) were taken. Technologist: Kimberly Carrillo, Technologist Prior study comparison: February 25, 2020, bilateral digital woman screen mammo performed at [facility]. January 26, 2019, bilateral digital woman screen mammo performed at [facility]. FINDINGS: The breast tissue is extremely dense which could obscure a lesion on mammography. Screening. Digital screening (2D) mammography was performed bilaterally in the CC and MLO projections. Additionally, breast tomosynthesis (3D mammography) was performed bilaterally in the CC and MLO projections. Todays exam was compared to the prior exam/exams. By history, the patient has no complaints of a palpable breast abnormality or other significant breast complaints. The breasts are unchanged in size and shape.Once again, dense heterogenous fibroglandular elements are seen bilaterally in a stable appearing pattern but to such a degree that the sensitivity of the mammogram in detecting cancer is decreased. There are no mich-soft tissue densities or spiculated masses. There is no internal architectural distortion.Calcifications are again seen in the breast/breasts. Some of these are in groups but no one group appears more suspicious than any other. There are no suspicious mich-calcific clusters. Skin thickening or nipple retraction is not present. IMPRESSION: BI-RADS Category 2- Benign Findings. There is no evidence of malignant alteration of the breasts. Followup examination recommended in one year. The Volpara volumetric breast density category is D, the breasts are extremely dense which lowers the sensitivity of mammography. This mammogram was read with the assistance of Crunched,an FDA approved computer aided detection system for mammography. The lifetime Tyrer-Cuzick score is 1.1 % Negative x-ray reports should not delay surgical consultation if a dominant or clinically suspicious mass is present. Not all breast cancers can be identified by mammography. Therefore, we recommend that you continue to perform regular breast self-examination and physical examination and then promptly contact your physician of any concerns or changes. Adenosis and dense breasts may obscure an underlying neoplasm. Assessment: BI-RADS/ACR category 2 mammogram. Benign Findings. Recommendation Routine screening mammogram of both breasts in 1 year. Electronically Signed By: Rafael Henriquez DO 03/03/21 09
== END ==
LOC: M WHC 08:06
PROVIDERS: ATTEND Family Medicine
DX: Z12.31 Encounter for screening mammogram for malignant neoplasm of breast (principal); Z78.0 Asymptomatic menopausal state; Z85.3 Personal history of malignant neoplasm of breast

== ENCOUNTER → 2021-03-27 | Outpatient (CLI) | payer MEDICARE ==
--- NOTE | 2021-03-27 10:48 | REP ---
INDICATION: AGE-RELATED OSTEOPOROSIS W/O CURRENT PATHOLOGICAL FRACTURE. COMPARISON: 07/04/2020 TECHNIQUE: AP and lateral views FINDINGS: Once again, there is diffuse bilateral cervical, thoracic, and lumbar spinal fixation with multiple transpedicular screws and posterior affixing rods all unchanged. There are multiple vertebral body compression deformities all unchanged. IMPRESSION: No evidence of significant change compared to the prior exam. T6 and T10 compression fractures status quo. <Electronically signed by Rafael Henriquez > 03/27/21 [id number]
== END ==
LOC: M PLAIMG 09:29
PROVIDERS: ATTEND Family Medicine
DX: M81.0 Age-related osteoporosis without current pathological fracture (principal)

== ENCOUNTER 2021-09-14 19:34 | Inpatient (IN) | payer MEDICARE ==
[~2021-09-14] VITALS: Ht 162.6 cm; Wt 56.2 kg
[2021-09-14] MEDS ORDERED: GABA-282 PO ×2 (19:40→23:49)
[2021-09-14] MEDS ORDERED: LIPI20TA PO ×2 (19:40→23:49)
[2021-09-14 20:53] LABS: BASO # 0.1 10^3/uL (0.0-0.2); BASO % 0.5 % (0.0-1.0); EOS # 0.3 10^3/uL (0.0-0.5); EOS % 2.5 % (0.0-3.0); HEMATOCRIT 41.9 % (36.0-47.0); HEMOGLOBIN 13.3 g/dl (12.0-15.5); LYMPH # 1.5 10^3/uL (1.5-5.0); LYMPH % 14.9 % (24.0-44.0); MEAN CORPUSCULAR HEMOGLOBIN 30.1 pg (27.0-33.0); MEAN CORPUSCULAR HGB CONC 31.7 g/dl (32.0-36.5); MEAN CORPUSCULAR VOLUME 94.8 fl (80.0-96.0); MONO # 0.9 10^3/uL (0.0-0.8); MONO % 9.5 % (2.0-8.0); NEUTROPHILS # 7.2 10^3/uL (1.5-8.5); NEUTROPHILS % 72.3 % (36.0-66.0); PLATELET COUNT, AUTOMATED 266 10^3/uL (150-450); RED BLOOD COUNT 4.42 10^6/uL (4.00-5.40); WHITE BLOOD COUNT 9.9 10^3/uL (4.0-10.0)
[2021-09-14] MEDS ORDERED: PANTOPRAZOLE 40MG VIAL IV ONE (21:05)
[2021-09-14 21:17] LABS: INR 0.95; PARTIAL THROMBOPLASTIN TIME 32.4 SECONDS (25.9-37.0); PROTHROMBIN TIME 13.1 SECONDS (12.7-14.5)
[2021-09-14 21:20] LABS: ALBUMIN 4.2 GM/DL (3.2-5.2); ALT/SGPT 33 U/L (12-78); BILIRUBIN,DIRECT 0.3 MG/DL (0.0-0.2); BLOOD UREA NITROGEN 21 MG/DL (7-18); CALCIUM LEVEL 9.3 MG/DL (8.8-10.2); CARBON DIOXIDE LEVEL 25 MEQ/L (21-32); CHLORIDE LEVEL 107 MEQ/L (98-107); GLOMERULAR FILTRATION RATE > 60.0 (>32); GLUCOSE, FASTING 108 MG/DL (70-100); LIPASE 252 U/L (73-393); SODIUM LEVEL 140 MEQ/L (136-145)
[2021-09-14] MEDS ORDERED: ISOVUE-370 76% 100ML VIAL As Ordered ONE (21:32)
[2021-09-14] MEDS ORDERED: ASPI-263 PO (23:50)
[2021-09-14] MEDS ORDERED: HOME MED LIST COMPLETE! XX SCH (23:55)
[2021-09-15] MEDS ORDERED: HYDROMORPHONE HCL 0.5 MG/ 0.5 ML SYRINGE (J1170 PER 1) IV PRN (01:00)
[2021-09-15 01:08] LABS: RSV AMPLIFICATION NEGATIVE (NEGATIVE)
[2021-09-15] MEDS: NS 1,000 ML IV SCH ×2 (01:10→11:07)
[2021-09-15 03:42] LABS: HEMATOCRIT 39.7 % (36.0-47.0); HEMOGLOBIN 12.9 g/dl (12.0-15.5)
[2021-09-15 08:07] LABS: BASO % 0.6 % (0.0-1.0); EOS # 0.3 10^3/uL (0.0-0.5); EOS % 3.7 % (0.0-3.0); HEMATOCRIT 38.5 % (36.0-47.0); HEMOGLOBIN 12.5 g/dl (12.0-15.5); LYMPH % 14.4 % (24.0-44.0); MEAN CORPUSCULAR HEMOGLOBIN 30.7 pg (27.0-33.0); MEAN CORPUSCULAR HGB CONC 32.5 g/dl (32.0-36.5); MEAN CORPUSCULAR VOLUME 94.6 fl (80.0-96.0); MONO # 0.7 10^3/uL (0.0-0.8); MONO % 10.3 % (2.0-8.0); NEUTROPHILS % 70.7 % (36.0-66.0); PLATELET COUNT, AUTOMATED 226 10^3/uL (150-450); RED BLOOD COUNT 4.07 10^6/uL (4.00-5.40); WHITE BLOOD COUNT 7.1 10^3/uL (4.0-10.0)
[2021-09-15 08:30] LABS: ALBUMIN 3.6 GM/DL (3.2-5.2); ALT/SGPT 29 U/L (12-78); BILIRUBIN,TOTAL 1.1 MG/DL (0.2-1.0); BLOOD UREA NITROGEN 14 MG/DL (7-18); CALCIUM LEVEL 8.6 MG/DL (8.8-10.2); CARBON DIOXIDE LEVEL 25 MEQ/L (21-32); CHLORIDE LEVEL 112 MEQ/L (98-107); CREATININE FOR GFR 0.65 MG/DL (0.55-1.30); GLOMERULAR FILTRATION RATE > 60.0 (>32); GLUCOSE, FASTING 96 MG/DL (70-100); SODIUM LEVEL 144 MEQ/L (136-145); TOTAL PROTEIN 5.9 GM/DL (6.4-8.2)
[2021-09-15 15:58] VITALS: BP 164/81
[2021-09-15 19:10] VITALS: BP 132/63
[2021-09-16] MEDS: NS 1,000 ML IV SCH ×2 (00:59→11:24)
[2021-09-16 06:00] VITALS: BP 130/64
[2021-09-16 06:35] LABS: BASO % 0.3 % (0.0-1.0); EOS # 0.3 10^3/uL (0.0-0.5); HEMATOCRIT 38.4 % (36.0-47.0); HEMOGLOBIN 12.4 g/dl (12.0-15.5); LYMPH # 1.2 10^3/uL (1.5-5.0); LYMPH % 13.2 % (24.0-44.0); MEAN CORPUSCULAR HEMOGLOBIN 30.6 pg (27.0-33.0); MEAN CORPUSCULAR HGB CONC 32.3 g/dl (32.0-36.5); MEAN CORPUSCULAR VOLUME 94.8 fl (80.0-96.0); MONO # 0.8 10^3/uL (0.0-0.8); MONO % 8.5 % (2.0-8.0); NEUTROPHILS % 74.6 % (36.0-66.0); PLATELET COUNT, AUTOMATED 223 10^3/uL (150-450); RED BLOOD COUNT 4.05 10^6/uL (4.00-5.40); WHITE BLOOD COUNT 9.4 10^3/uL (4.0-10.0)
[2021-09-16 06:58] LABS: ALBUMIN 3.4 GM/DL (3.2-5.2); ALT/SGPT 27 U/L (12-78); BILIRUBIN,TOTAL 1.5 MG/DL (0.2-1.0); BLOOD UREA NITROGEN 14 MG/DL (7-18); CALCIUM LEVEL 8.1 MG/DL (8.8-10.2); CARBON DIOXIDE LEVEL 26 MEQ/L (21-32); CHLORIDE LEVEL 110 MEQ/L (98-107); CREATININE FOR GFR 0.65 MG/DL (0.55-1.30); GLOMERULAR FILTRATION RATE > 60.0 (>32); GLUCOSE, FASTING 62 MG/DL (70-100); MAGNESIUM LEVEL 2.1 MG/DL (1.8-2.4); POTASSIUM SERUM 3.9 MEQ/L (3.5-5.1); SODIUM LEVEL 142 MEQ/L (136-145); TOTAL PROTEIN 5.5 GM/DL (6.4-8.2)
[2021-09-16] MEDS: ATORVASTATIN 20 MG TAB PO SCH (09:50)
[2021-09-16] MEDS: GABAPENTIN 300 MG CAP PO SCH ×2 (09:50→20:35)
[2021-09-16 14:00] VITALS: BP 133/69
[2021-09-16 22:00] VITALS: BP 148/67
[2021-09-17 06:00] VITALS: BP 111/71
[2021-09-17] MEDS: ATORVASTATIN 20 MG TAB PO SCH (08:18)
[2021-09-17] MEDS: GABAPENTIN 300 MG CAP PO SCH (08:18)
[2021-09-17 08:35] LABS: BASO % 0.1 % (0.0-1.0); EOS # 0.2 10^3/uL (0.0-0.5); EOS % 2.8 % (0.0-3.0); HEMATOCRIT 39.9 % (36.0-47.0); HEMOGLOBIN 12.9 g/dl (12.0-15.5); LYMPH # 0.9 10^3/uL (1.5-5.0); LYMPH % 11.5 % (24.0-44.0); MEAN CORPUSCULAR HEMOGLOBIN 30.5 pg (27.0-33.0); MEAN CORPUSCULAR HGB CONC 32.3 g/dl (32.0-36.5); MEAN CORPUSCULAR VOLUME 94.3 fl (80.0-96.0); MONO # 0.6 10^3/uL (0.0-0.8); NEUTROPHILS # 6.2 10^3/uL (1.5-8.5); NEUTROPHILS % 77.3 % (36.0-66.0); PLATELET COUNT, AUTOMATED 235 10^3/uL (150-450); RED BLOOD COUNT 4.23 10^6/uL (4.00-5.40)
[2021-09-17 09:14] LABS: ALBUMIN 3.4 GM/DL (3.2-5.2); ALT/SGPT 27 U/L (12-78); BILIRUBIN,TOTAL 1.5 MG/DL (0.2-1.0); BLOOD UREA NITROGEN 6 MG/DL (7-18); CALCIUM LEVEL 8.6 MG/DL (8.8-10.2); CARBON DIOXIDE LEVEL 28 MEQ/L (21-32); CHLORIDE LEVEL 114 MEQ/L (98-107); CREATININE FOR GFR 0.51 MG/DL (0.55-1.30); GLOMERULAR FILTRATION RATE > 60.0 (>32); GLUCOSE, FASTING 99 MG/DL (70-100); MAGNESIUM LEVEL 2.1 MG/DL (1.8-2.4); POTASSIUM SERUM 4.1 MEQ/L (3.5-5.1); SODIUM LEVEL 145 MEQ/L (136-145); TOTAL PROTEIN 5.8 GM/DL (6.4-8.2)
[2021-09-17] MEDS ORDERED: diphenhydrAMINE 25MG CAP PO ONE (09:35)
[2021-09-17] MEDS ORDERED: BENA2CRE2 TOP (12:03)
[2021-09-18] MEDS ORDERED: METR-265 PO (15:10)
[2021-09-18] MEDS ORDERED: CIPR250T3 PO (15:10)
== END 2021-09-17 14:28 | disposition home or self-care (01) | DRG 394 ==
LOC: M ED 19:34 → M ED INP 09-15 02:47 → ENRESERV 09-15 03:26 → M MSPAV 09-15 15:58
PROVIDERS: ADMIT Internal Medicine; ATTEND Family Medicine
DX: K55.9 Vascular disorder of intestine, unspecified (principal); K92.1 Melena; M81.0 Age-related osteoporosis without current pathological fracture; E78.5 Hyperlipidemia, unspecified; R13.10 Dysphagia, unspecified; M54.9 Dorsalgia, unspecified; Z98.41 Cataract extraction status, right eye; Z98.42 Cataract extraction status, left eye; Z90.49 Acquired absence of other specified parts of digestive tract; D64.9 Anemia, unspecified; Z79.899 Other long term (current) drug therapy; Z88.0 Allergy status to penicillin; Z88.5 Allergy status to narcotic agent

== ENCOUNTER → 2021-10-09 | Outpatient (CLI) | payer MEDICARE ==
[~2021-10-09] MED LIST changes: +ASPI-263 PO; +BENA2CRE2 TOP; +CIPR250T3 PO; +GABA-282 PO; +LIPI20TA PO; +METR-265 PO
== END ==
LOC: M WHC 09:30
PROVIDERS: ATTEND Family Medicine
DX: M81.0 Age-related osteoporosis without current pathological fracture (principal); M85.88 Other specified disorders of bone density and structure, other site

== ENCOUNTER → 2021-11-27 | Outpatient (CLI) | payer MEDICARE ==
[2021-11-27 14:31] LABS: CALCIUM LEVEL 9.6 MG/DL (8.8-10.2); CREATININE FOR GFR 0.95 MG/DL (0.55-1.30); GLOMERULAR FILTRATION RATE 59.7 (>32); POTASSIUM SERUM 4.2 MEQ/L (3.5-5.1)
== END ==
LOC: M ADAMS 08:53
PROVIDERS: ATTEND Family Medicine
DX: M81.0 Age-related osteoporosis without current pathological fracture (principal)

== ENCOUNTER 2021-11-30 14:46 | Outpatient (CLI) | payer MEDICARE ==
[~2021-11-30] VITALS: Ht 162.6 cm; Wt 56.3 kg
[2021-11-30 14:50] VITALS: BP 159/82
[2021-11-30] MEDS ORDERED: ZOLEDRONIC ACID 5 MG in IV 1 EA IV ONE (15:00)
[2021-11-30 15:35] VITALS: BP 160/77
== END 2021-11-30 15:45 | disposition home or self-care (01) ==
LOC: M INFU 14:46
PROVIDERS: ATTEND Family Medicine
DX: M81.0 Age-related osteoporosis without current pathological fracture (principal); Z88.0 Allergy status to penicillin; Z88.5 Allergy status to narcotic agent
CPT/HCPCS: 96365; J3489

== ENCOUNTER → 2022-03-26 | Outpatient (CLI) | payer MEDICARE | LOC: M PLALAB 09:25 | PROVIDERS: ATTEND Family Medicine | DX: M19.031 Primary osteoarthritis, right wrist (principal) ==

== ENCOUNTER 2022-09-01 14:59 | Emergency (ER) | payer MEDICARE ==
[~2022-09-01] VITALS: Ht 162.6 cm; Wt 55.3 kg
[2022-09-01] MEDS ORDERED: ATOR40TA75 (15:16)
[2022-09-01] MEDS ORDERED: traMADol 50 MG TAB PO ONE (15:55)
[2022-09-01] MEDS ORDERED: NS 1,000 ML IV SCH (18:25)
[2022-09-01] MEDS: propofoL 200 MG/20 ML VIAL IV.PROC PRN ×4 (18:35→18:39)
[2022-09-01 19:02] VITALS: BP 158/78
== END 2022-09-01 19:54 | disposition home or self-care (01) ==
LOC: M ED 14:59
DX: S53.004A Unspecified dislocation of right radial head, initial encounter (principal); W01.0XXA Fall on same level from slipping, tripping and stumbling without subsequent striking against object, initial encounter; Y92.009 Unspecified place in unspecified non-institutional (private) residence as the place of occurrence of the external cause; Y93.01 Activity, walking, marching and hiking; Y99.8 Other external cause status; I10 Essential (primary) hypertension; G43.909 Migraine, unspecified, not intractable, without status migrainosus; E78.5 Hyperlipidemia, unspecified; K21.9 Gastro-esophageal reflux disease without esophagitis; J45.909 Unspecified asthma, uncomplicated; Z88.0 Allergy status to penicillin; Z88.5 Allergy status to narcotic agent

== ENCOUNTER → 2022-09-18 | Outpatient (CLI) | payer MEDICARE ==
[~2022-09-18] MED LIST changes: +ATOR40TA75
[2022-09-18 14:37] LABS: BASO % 0.7 % (0.0-1.0); EOS # 0.3 10^3/uL (0.0-0.5); EOS % 4.6 % (0.0-3.0); HEMATOCRIT 46.5 % (36.0-47.0); HEMOGLOBIN 14.6 g/dl (12.0-15.5); LYMPH # 1.4 10^3/uL (1.5-5.0); LYMPH % 24.1 % (24.0-44.0); MEAN CORPUSCULAR HEMOGLOBIN 31.3 pg (27.0-33.0); MEAN CORPUSCULAR HGB CONC 31.4 g/dl (32.0-36.5); MEAN CORPUSCULAR VOLUME 99.8 fl (80.0-96.0); MONO # 0.5 10^3/uL (0.0-0.8); MONO % 8.7 % (2.0-8.0); NEUTROPHILS # 3.6 10^3/uL (1.5-8.5); NEUTROPHILS % 61.7 % (36.0-66.0); PLATELET COUNT, AUTOMATED 317 10^3/uL (150-450); RED BLOOD COUNT 4.66 10^6/uL (4.00-5.40); WHITE BLOOD COUNT 5.9 10^3/uL (4.0-10.0)
[2022-09-18 15:07] LABS: ALBUMIN 4.6 G/DL (3.2-5.2); ALKALINE PHOSPHATASE 188 U/L (46-116); ALT/SGPT 23 U/L (7.0-40); AST/SGOT 33 U/L (<34); BILIRUBIN,TOTAL 1.4 MG/DL (0.3-1.2); BLOOD UREA NITROGEN 14 MG/DL (9-23); CALCIUM LEVEL 9.5 MG/DL (8.3-10.6); CARBON DIOXIDE LEVEL 30 MMOL/L (20-31); CHLORIDE LEVEL 105 MMOL/L (98-107); CHOLESTEROL LEVEL 160 MG/DL (<200); CHOLESTEROL RISK RATIO 2.16 (<5); CREATININE FOR GFR 0.76 MG/DL (0.55-1.30); GLOMERULAR FILTRATION RATE > 60.0 (>32); GLUCOSE, FASTING 95 MG/DL (74-106); HDL CHOLESTEROL 73.8 MG/DL (>40); LDL CHOLESTEROL 67.8 MG/DL (<100); NON-HDL-C 86.2 MG/DL; POTASSIUM SERUM 4.8 MMOL/L (3.5-5.1); SODIUM LEVEL 143 MMOL/L (136-145); TRIGLYCERIDES LEVEL 92 MG/DL (<150)
[2022-09-18 15:08] LABS: TOTAL 25(OH) VITAMIN D 53.1 NG/ML (20.0-100.0)
== END ==
LOC: M LABDRWAD 09:01
PROVIDERS: ATTEND Family Medicine
DX: E78.5 Hyperlipidemia, unspecified (principal); M81.0 Age-related osteoporosis without current pathological fracture

== ENCOUNTER → 2022-10-23 | Outpatient (CLI) | payer MEDICARE | LOC: M SOG 09:00 | PROVIDERS: ATTEND Orthopaedic Surgery | DX: Z53.9 Procedure and treatment not carried out, unspecified reason (principal) ==

== ENCOUNTER → 2022-11-20 | Outpatient (CLI) | payer MEDICARE | LOC: M SOG 08:11 | PROVIDERS: ATTEND Physician Assistant | DX: M25.521 Pain in right elbow (principal) ==

== ENCOUNTER → 2022-12-07 | Outpatient (CLI) | payer MEDICARE | LOC: M EKG 10:00 | PROVIDERS: ATTEND Family Medicine | DX: Z01.818 Encounter for other preprocedural examination (principal) ==

== ENCOUNTER 2022-12-17 06:03 | Day surgery (SDC) | payer MEDICARE ==
[~2022-12-17] VITALS: Ht 160 cm; Wt 53.8 kg
[2022-12-17] MEDS ORDERED: LR 1,000 ML IV SCH (06:25)
[2022-12-17] MEDS ORDERED: propofoL 200 MG/20 ML VIAL As Ordered ONE (07:10)
[2022-12-17] MEDS ORDERED: fentaNYL 100 MCG/2 ML INJECTION As Ordered ONE ×2 (07:11→08:11)
[2022-12-17] MEDS ORDERED: ETOMIDATE INJ 20MG/10ML VIAL As Ordered ONE (07:11)
[2022-12-17] MEDS ORDERED: ONDANSETRON 4MG 2ML VIAL As Ordered ONE (07:11)
[2022-12-17] MEDS ORDERED: LIDOCAINE 2% 100MG/5ML SDV (FOR ANES.) As Ordered ONE (07:12)
[2022-12-17] MEDS ORDERED: ceFAZolin SOD 2 GM in IV 1 EA IV ONE (07:20)
[2022-12-17] MEDS ORDERED: BACITRACIN OINTMENT 30GM TUBE As Ordered ONE (08:30)
[2022-12-17] MEDS ORDERED: fentaNYL 100 MCG/2 ML INJECTION IV PRN (09:15)
[2022-12-17] MEDS ORDERED: ONDANSETRON 4MG 2ML VIAL IV PRN (09:15)
[2022-12-17] MEDS ORDERED: MORPHINE 2 MG/ML 1ML VIAL IV PRN (09:15)
[2022-12-17] MEDS ORDERED: oxyCODONE 5MG TAB PO PRN (09:15)
[2022-12-17] MEDS ORDERED: PERC5TAB12 PO (09:37)
[2022-12-17 11:10] VITALS: BP 115/55; TEMP 98.6; O2SAT 99
== END 2022-12-17 11:19 | disposition home or self-care (01) ==
LOC: M SDC 06:03
PROVIDERS: ATTEND Orthopaedic Surgery Hand Surgery
DX: M18.11 Unilateral primary osteoarthritis of first carpometacarpal joint, right hand (principal); E78.00 Pure hypercholesterolemia, unspecified; M81.0 Age-related osteoporosis without current pathological fracture; Z79.899 Other long term (current) drug therapy; Z88.0 Allergy status to penicillin; Z88.5 Allergy status to narcotic agent; Z88.1 Allergy status to other antibiotic agents
CPT/HCPCS: 25447; 76000; C1713; J0665; J0690; J1100; J2405; J3010

== ENCOUNTER → 2022-12-27 | Outpatient (CLI) | payer MEDICARE ==
[~2022-12-27] MED LIST changes: +PERC5TAB12 PO
== END ==
LOC: M SOG 12:59
PROVIDERS: ATTEND Physician Assistant
DX: M18.11 Unilateral primary osteoarthritis of first carpometacarpal joint, right hand (principal)

== ENCOUNTER → 2023-01-29 | Outpatient (CLI) | payer MEDICARE | LOC: M SOG 08:18 | PROVIDERS: ATTEND Physician Assistant | DX: M18.11 Unilateral primary osteoarthritis of first carpometacarpal joint, right hand (principal) ==

== ENCOUNTER → 2023-09-20 | Outpatient (REF) | payer MEDICARE ==
[2023-09-20 13:32] LABS: BASO % 0.7 % (0.0-1.0); EOS # 0.2 10^3/uL (0.0-0.5); EOS % 3.1 % (0.0-3.0); HEMOGLOBIN 15.1 g/dl (12.0-15.5); LYMPH # 1.8 10^3/uL (1.5-5.0); LYMPH % 29.1 % (24.0-44.0); MEAN CORPUSCULAR HEMOGLOBIN 31.8 pg (27.0-33.0); MEAN CORPUSCULAR HGB CONC 32.1 g/dl (32.0-36.5); MEAN CORPUSCULAR VOLUME 98.9 fl (80.0-96.0); MONO # 0.6 10^3/uL (0.0-0.8); MONO % 9.2 % (2.0-8.0); NEUTROPHILS # 3.5 10^3/uL (1.5-8.5); NEUTROPHILS % 57.7 % (36.0-66.0); PLATELET COUNT, AUTOMATED 259 10^3/uL (150-450); RED BLOOD COUNT 4.75 10^6/uL (4.00-5.40); WHITE BLOOD COUNT 6.1 10^3/uL (4.0-10.0)
[2023-09-20 13:41] LABS: ALBUMIN 4.1 G/DL (3.2-5.2); ALKALINE PHOSPHATASE 121 U/L (46-116); ALT/SGPT 26 U/L (7.0-40); AST/SGOT 29 U/L (<34); BILIRUBIN,TOTAL 1.4 MG/DL (0.3-1.2); BLOOD UREA NITROGEN 16 MG/DL (9-23); CALCIUM LEVEL 9.5 MG/DL (8.3-10.6); CARBON DIOXIDE LEVEL 30 MMOL/L (20-31); CHLORIDE LEVEL 106 MMOL/L (98-107); CHOLESTEROL LEVEL 153 MG/DL (<200); CREATININE FOR GFR 0.76 MG/DL (0.55-1.30); GLOMERULAR FILTRATION RATE > 60.0 (>32); GLUCOSE, FASTING 87 MG/DL (74-106); HDL CHOLESTEROL 80.2 MG/DL (>40); LDL CHOLESTEROL 59.8 MG/DL (<100); NON-HDL-C 72.8 MG/DL; SODIUM LEVEL 140 MMOL/L (136-145); TOTAL 25(OH) VITAMIN D 47.5 NG/ML (20.0-100.0); TOTAL PROTEIN 6.6 G/DL (5.7-8.2); TRIGLYCERIDES LEVEL 65 MG/DL (<150)
== END ==
LOC: M LABDRWAD 12:12
PROVIDERS: ATTEND Family Medicine
DX: M81.0 Age-related osteoporosis without current pathological fracture (principal); E78.5 Hyperlipidemia, unspecified

== ENCOUNTER → 2024-04-01 | Outpatient (CLI) | payer MEDICARE ==
[~2024-04-01] MED LIST changes: +GABA-1172 PO; -GABA-282 PO
== END ==
LOC: M PLAIMG 10:39 → M PLALAB 10:39
PROVIDERS: ATTEND Family Medicine
DX: M25.561 Pain in right knee (principal); M17.11 Unilateral primary osteoarthritis, right knee

== ENCOUNTER → 2024-09-21 | Outpatient (REF) | payer MEDICARE ==
[2024-09-21 13:33] LABS: BASO % 0.5 % (0.0-1.0); EOS # 0.3 10^3/uL (0.0-0.5); EOS % 4.1 % (0.0-3.0); HEMATOCRIT 46.6 % (36.0-47.0); HEMOGLOBIN 14.9 g/dl (12.0-15.5); LYMPH # 1.5 10^3/uL (1.5-5.0); LYMPH % 24.5 % (24.0-44.0); MEAN CORPUSCULAR HEMOGLOBIN 31.2 pg (27.0-33.0); MEAN CORPUSCULAR VOLUME 97.5 fl (80.0-96.0); MONO # 0.6 10^3/uL (0.0-0.8); MONO % 9.6 % (2.0-8.0); NEUTROPHILS # 3.7 10^3/uL (1.5-8.5); PLATELET COUNT, AUTOMATED 243 10^3/uL (150-450); RED BLOOD COUNT 4.78 10^6/uL (4.00-5.40); WHITE BLOOD COUNT 6.1 10^3/uL (4.0-10.0)
[2024-09-21 13:38] LABS: ALBUMIN 4.2 G/DL (3.2-5.2); BILIRUBIN,TOTAL 1.6 MG/DL (0.3-1.2); CALCIUM LEVEL 9.2 MG/DL (8.3-10.6); CHOLESTEROL RISK RATIO 2.08 (<5); CREATININE FOR GFR 0.76 MG/DL (0.55-1.30); GLOMERULAR FILTRATION RATE 75.8 (>32); HDL CHOLESTEROL 76.2 MG/DL (>40); LDL CHOLESTEROL 62.2 MG/DL (<100); NON-HDL-C 82.8 MG/DL; POTASSIUM SERUM 4.3 MMOL/L (3.5-5.1); TOTAL PROTEIN 6.7 G/DL (5.7-8.2)
[2024-09-21 13:39] LABS: TOTAL 25(OH) VITAMIN D 55.3 NG/ML (20.0-100.0)
== END ==
LOC: M LABDRWAD 12:41
PROVIDERS: ATTEND Family Medicine
DX: M81.0 Age-related osteoporosis without current pathological fracture (principal); E78.5 Hyperlipidemia, unspecified